=== PATIENT | female | born 1980 | race Hispanic/Latino ===

== ENCOUNTER 2018-09-28 00:38 | Emergency (ER) | payer BC, OTHER ==
[2018-09-28 01:06] VITALS: BMI 37.4
[2018-09-28 01:09] VITALS: BP 124/87; PULSE 91; RESP 18; TEMP 98.1; O2SAT 99
--- NOTE | 2018-09-28 01:19 | ED PDOC ---
Arrival/HPI - General Chief Complaint: Eye Problem Time Seen by Provider: 09/28/18 01:11 Historian: Patient - History of Present Illness Narrative History of Present Illness (Text): 09/28/18 01:22 37 female whose past medical history includes chronic migraine headaches, presents to the ED with chief complaint of bilateral conjunctival redness, tearing, irritation. Patient states she was recently diagnosed with the flu. Patient denies foreign body sensation but reports lots of green and yellow discharge from eyes. Patient denies headache, no vision loss, no fever for at least three days, no joint pains, no dysuria. Time/Duration: Prior to Arrival Symptom Onset: Gradual Symptom Course: Unchanged Activities at Onset: Light Context: Home Past Medical History - Provider Review Nursing Documentation Reviewed: Yes - Infectious Disease Hx of Infectious Diseases: None - Tetanus Immunization Tetanus Immunization: Unknown - Reproductive Currently : Unknown - Cardiac Hx Cardiac Disorders: No - Pulmonary Hx Respiratory Disorders: No - Neurological Hx Migraine: Yes - HEENT Hx HEENT Disorder: No - Renal Hx Renal Failure: (insufficiency???) - Genitourinary/Gynecological Hx Genitourinary Disorders: No - Psychiatric Hx Depression: No Hx Emotional Abuse: No Hx Physical Abuse: No Hx Substance Use: No - Past Surgical History Past Surgical History: No Previous - Anesthesia Hx Anesthesia: No Hx Anesthesia Reactions: No Hx Malignant Hyperthermia: No - Suicidal Assessment Feels Threatened In Home Enviroment: No Family/Social History - Physician Review Nursing Documentation Reviewed: Yes Family/Social History: No Known Family HX Smoking Status: Current Some Days Smoker Hx Alcohol Use: No Hx Substance Use: No Hx Substance Use Treatment: No Allergies/Home Meds Allergies/Adverse Reactions: Allergies diphenhydramine HCl [From Benadryl] Allergy (Verified 09/28/18 01:05) CONGESTION naproxen Allergy (Verified 09/28/18 01:05) RASH strawberry Allergy (Verified 09/28/18 01:05) RASH Home Medications: Home Meds Medication Instructions Recorded Confirmed Rizatriptan Benzoate [Maxalt] 10 mg PO PRN PRN 09/28/18 09/28/18 Review of Systems - Physician Review All systems were reviewed & negative as marked: Yes - Review of Systems Constitutional: absent: Fevers Eyes: Eye Pain (and discharge). absent: Vision Changes Musculoskeletal: absent: Arthralgias Neurological: absent: Headache Physical Exam - Physical Exam Narrative Physical Exam (Text): 09/28/18 01:25 Gen: VS reviewed, alert, well developed, well nourished, nontoxic, mild distress Eye: EOMI, PERRL, bilateral conjunctival hyperemia, copious watery bilateral discharge Neck: no JVD, supple, no adenopathy Skin: good color, no cyanosis Psych: responds appropriately to questions, normal affect Neuro: oriented x3, CN2-12 intact grossly, motor intact, sensation intac Vital Signs Reviewed: Yes Vital Signs Temp Pulse Resp BP Pulse Ox 09/28/18 01:08 98.1 F 91 H 18 124/87 99 Temperature: Afebrile Blood Pressure: Normal Pulse: Regular Respiratory Rate: Normal Appearance: Positive for: Well-Appearing, Non-Toxic, Comfortable Pain Distress: None Mental Status: Positive for: Alert and Oriented X 3 Medical Decision Making ED Course and Treatment: 09/28/18 01:16 Impression: 37 year old female presents with eye redness and swelling Plan: -- Reassess and disposition Prior Visits: Notes and results from previous visits were reviewed. Progress Notes: patient seen for bilateral conjunctivitis. patient was recently diagnosed with positive influenza test. no foreign body sensation but lots of cloudy discharge from eyes. will rx abx ointment and patient will follow up with ophthmaologist. no visual disturbance at this time. no other current systemic symptoms. 09/28/18 01:31 - Scribe Statement The provider has reviewed the documentation as recorded by the Scribe Disposition/Present on Arrival - Present on Arrival Any Indicators Present on Arrival: No History of DVT/PE: No History of Uncontrolled Diabetes: No Urinary Catheter: No History of Decub. Ulcer: No History Surgical Site Infection Following: None - Disposition Have Diagnosis and Disposition been Completed?: Yes Diagnosis: Conjunctivitis Disposition: HOME/ ROUTINE Disposition Time: 01:18 Patient Plan: Discharge Condition: STABLE Discharge Instructions (ExitCare): Conjunctivitis ([place]) Additional Instructions: follow up with the soft sugar operator head as soon as possible-call today to make an appointment. Prescriptions: Erythromycin 0.5% [Erythromycin] 1 applic LEFTEYE QID 5 Days #1 tube Forms: [employer] ([place]), WORK NOTE
== END 2018-09-28 01:35 | disposition home or self-care (01) ==
LOC: ED 00:38
DX: H10.9 Unspecified conjunctivitis (principal)